=== PATIENT | male | born 1985 | race Caucasian/White ===

== ENCOUNTER → 2017-09-14 | Outpatient (CLI) | payer OTHER ==
[~2017-09-14] MED LIST: IOPAMIDOL (ISOVUE-300) 100 ML BTL ONE
== END ==
LOC: FIMAGING 11:24
PROVIDERS: ATTEND Nurse Practitioner
DX: K11.20 Sialoadenitis, unspecified (principal); R59.0 Localized enlarged lymph nodes; R25.2 Cramp and spasm; J33.9 Nasal polyp, unspecified
CPT/HCPCS: Q9967